=== PATIENT | female | born 2000 | race African-American/Black ===

== ENCOUNTER 2021-11-16 11:54 | Emergency (ER) | payer MEDICAID, OTHER ==
[~2021-11-16] VITALS: Ht 162.6 cm; Wt 55.0 kg
[2021-11-16] MEDS ORDERED: ACETAMINOPHEN 325MG TABLET PO STA (12:11)
[2021-11-16 12:53] LABS: CLARITY URINE CLOUDY (CLEAR); COLOR URINE YELLOW (YELLOW); KETONES URINE NEGATIVE (NEGATIVE); LEUKOCYTE ESTERASE URINE 3+ (NEGATIVE); NITRITE URINE POSITIVE (NEGATIVE); OCCULT BLOOD URINE NEGATIVE (NEGATIVE); PROTEIN URINE TRACE (NEGATIVE); SPECIFIC GRAVITY URINE 1.024 (1.005-1.030)
[2021-11-16 13:04] LABS: *AMPHETAMINES SCREEN URINE NEGATIVE (NEGATIVE); *BARBITURATES SCREEN URINE NEGATIVE (NEGATIVE); *BENZODIAZEPINES SCREEN URINE NEGATIVE (NEGATIVE); *COCAINE SCREEN URINE NEGATIVE (NEGATIVE); METHADONE URINE SCREEN NEGATIVE (NEGATIVE); OPIATES URINE SCREEN NEGATIVE (NEGATIVE); PHENCYCLIDINE URINE SCREEN NEGATIVE (NEGATIVE)
[2021-11-16 13:07] LABS: CHLORIDE 106 mEq/L (98-107)
[2021-11-16 13:16] LABS: ETHANOL BLOOD < 10 mg/dL
[2021-11-16 13:17] LABS: CANNABINOID URINE SCREEN PRESUMTIVE POSITIVE (NEGATIVE)
[2021-11-16] MEDS ORDERED: ACET-2708 MT (13:36)
[2021-11-16] MEDS ORDERED: DOXY-326 MT (13:36)
[2021-11-16] MEDS ORDERED: CEFTRIAXONE SODIUM 500 MG/VIAL IM ONE (13:45)
[2021-11-16] MEDS ORDERED: DOXYCYCLINE HYCLATE 100MG CAPSULE PO ONE (13:45)
[2021-11-16 14:05] VITALS: BP 118/56
== END 2021-11-16 14:05 | disposition home or self-care (01) ==
LOC: ER 12:16
DX: N39.0 Urinary tract infection, site not specified (principal); R07.89 Other chest pain; Z98.890 Other specified postprocedural states; Z13.9 Encounter for screening, unspecified
CPT/HCPCS: 36415; 71045; 80053; 80305; 80320; 81003; 83690; 87591; 93005; 96372; 99285; J0696; G0480

== ENCOUNTER 2022-04-25 10:12 | Emergency (ER) | payer MEDICAID, OTHER ==
[~2022-04-25] VITALS: Ht 170.2 cm; Wt 79.0 kg
[~2022-04-25 10:12] MED LIST: ACET-2708 MT; DOXY-326 MT
[2022-04-25 15:38] LABS: BASOPHILS % 0.3 % (0.0-2.0); EOSINOPHILS % 0.6 % (0.0-5.0); HEMATOCRIT. 29.5 % (36.0-48.0); HEMOGLOBIN. 9.4 g/dL (12.0-16.0); LYMPHOCYTES % 20.5 % (20.0-50.0); MEAN CORPUSCULAR HEMOGLOBIN 23.1 pg (28.0-32.0); MEAN CORPUSCULAR VOLUME 72.7 fL (81.0-99.0); MEAN PLATELET VOLUME 9.7 fl (7.4-10.4); MONOCYTES % 6.7 % (2.0-8.0); NEUTROPHILS % 71.9 % (40.0-76.0); PLATELET 221 x1000/uL (130-400); RED BLOOD CELL COUNT 4.06 mill/uL (4.2-5.4); RED CELL DISTRIBUTION WIDTH 18.1 % (11.6-14.6)
[2022-04-25 16:00] LABS: CHLORIDE 107 mEq/L (98-107)
[2022-04-25 16:07] LABS: HCG SCREEN NEGATIVE
[2022-04-25] MEDS ORDERED: MEDR10TA11 MT (16:41)
[2022-04-25] MEDS ORDERED: FERR325T6 PO (16:41)
[2022-04-25 17:07] VITALS: BP 115/75
== END 2022-04-25 17:09 | disposition home or self-care (01) ==
LOC: ER 10:12
DX: N93.9 Abnormal uterine and vaginal bleeding, unspecified (principal); D64.9 Anemia, unspecified
CPT/HCPCS: 36415; 76830; 76856; 80053; 84703; 85025; 86850; 86900; 99284